=== PATIENT | female | born 1945 | race African-American/Black ===

== ENCOUNTER 2016-06-21 11:17 | Emergency (ER) | payer MEDICARE, MEDICAID, OTHER ==
[~2016-06-21] VITALS: Ht 170.2 cm; Wt 136.0 kg
[~2016-06-21 11:17] MED LIST: ASPI81TA82 PO; BENI40TA30 PO; FISH1000 PO; GLUCTAB PO; METO100T PO; MOBI15TA PO; OMEP20CA5 PO; SPIR50TA21 PO; SULF1TAB47 PO
[2016-06-21 11:19] VITALS: BP 219/105; PULSE 76; RESP 24; TEMP 98.5; O2SAT 96
--- NOTE | 2016-06-21 11:42 | PD ---
Physical Exam Date Seen by Provider: Jun 21, 2016 Narrative Pt was sent by Dr. Dukes for evaluation of redness to right hand and forearm. Pt reports pain in right hand 8/10. Pt states doctor told her she had a slight fever. Pt with hx of hypertension, states she took her medication this morning. She denies any other complaints. Redness extends to mid forearm, pain with passive extension of fingers on right hand. Awaiting bed placement. Daughter with patient. Data Data Last Documented VS Vital Signs Date Time Temp Pulse Resp B/P Pulse Ox O2 Delivery O2 Flow Rate FiO2 06/21/16 11:19 98.5 76 24 219/[address] [facility] Supervised Visit with CRISTINE: Melody Landis Jun 21, 2016 11:42
--- NOTE | 2016-06-21 13:00 | PD ---
HPI Chief Complaint: Skin Problem Time Seen by Provider: 13:00 Travel History International Travel<30 days: No Contact w/Intl Traveler<30days: No Traveled to known affect area: No History of Present Illness HPI 71-year-old female with history of diabetes and high blood pressure presents to the emergency department for evaluation of redness and swelling of her distal right upper extremity. Patient states she notices Sunday. This distal forearm and hand were red and swollen when she woke up. She does not recall any injury. She states over the weekend has lessened but persists. She reports significant pain with extension of the third and fourth digits of the right hand and it is difficult to make a fist secondary to the pain. She rates the pain at rest a 6 out of 10. With movement it exacerbates a 10 out of 10. Erythema is primarily on the forearm. She went and saw Dr. Dukes today who advised after his exam that she come to the emergency department for further evaluation of possible DVT. Patient denies any fever or chills. She has no other symptoms to report. PFSH Past Medical History Cardiovascular Problems: Yes (HTN) Diabetes: Yes (bydureon injection once a week.) Hypertension: Yes Respiratory: No (non smoker) Tubal Ligation: Yes Social History Alcohol Use: No Tobacco Use: No Substance Use: No Allergies-Medications (Allergen,Severity, Reaction): Coded Allergies: No Known Allergies (Unverified , 06/21/16) Reported Meds & Prescriptions Reported Meds & Active Scripts Active Keflex (Cephalexin) 500 Mg Cap 500 Mg PO Q6H 5 Days Reported Bydureon Inj (Exenatide) 2 Mg Vial 2 Mg SQ Q7D Ditropan (Oxybutynin Chloride) 5 Mg Tab 5 Mg PO Q12HR Metoprolol Tartrate 100 Mg Tab 100 Mg PO BID Gabapentin 100 Mg Cap 100 Mg PO HS Norvasc (Amlodipine Besylate) 5 Mg Tab 5 Mg PO DAILY Aspirin 81 Mg Tabdr 81 Mg PO DAILY Mobic (Meloxicam) 15 Mg Tab 15 Mg PO DAILY Review of Systems Except as stated in HPI: all other systems reviewed are Neg Physical Exam Narrative GENERAL: Well-nourished female patient, in no acute distress SKIN: Focused skin assessment warm/dry. HEAD: Atraumatic. Normocephalic. EYES: Pupils equal and round. No scleral icterus. No injection or drainage. ENT: No nasal bleeding or discharge. Mucous membranes pink and moist. NECK: Trachea midline. No JVD. CARDIOVASCULAR: Regular rate and rhythm. No murmur appreciated. RESPIRATORY: No accessory muscle use. Clear to auscultation. Breath sounds equal bilaterally. GASTROINTESTINAL: Abdomen soft, non-tender, nondistended. Hepatic and splenic margins not palpable. MUSCULOSKELETAL: No obvious deformities. No clubbing. No cyanosis. There is mild edema of the right forearm extending to the distal hand. It is nonpitting. There is an area of erythema extending on the anterior forearm from the wrist proximally approximately 20 cm by 10 cm there is pain with passive extension of the third and fourth digits elicited in the forearm. The patient slowly makes a fist of the right hand but states this is painful. Distal pulses are palpable. Cap refill is within normal limits. NEUROLOGICAL: Awake and alert. No obvious cranial nerve deficits. Motor grossly within normal limits. Normal speech. PSYCHIATRIC: Appropriate mood and affect; insight and judgment normal. Data Data Last Documented VS Vital Signs Date Time Temp Pulse Resp B/P Pulse Ox O2 Delivery O2 Flow Rate FiO2 06/21/16 14:41 98.0 76 17 150/84 99 06/21/16 11:19 Room Air Orders Iv Access Insert/Monitor (06/21/16 12:59) Complete Blood Count With Diff (06/21/16 12:59) Basic Metabolic Panel (Bmp) (06/21/16 12:59) Coag Profile (06/21/16 12:59) Us Arm Venous Doppler (06/21/16 ) Ketorolac Inj (Toradol Inj) (06/21/16 14:30) Labs Laboratory Tests Test 06/21/16 13:00 White Blood Count 11.2 TH/MM3 Red Blood Count 4.19 MIL/MM3 Hemoglobin 11.2 GM/DL Hematocrit 34.9 % Mean Corpuscular Volume 83.2 FL Mean Corpuscular Hemoglobin 26.8 PG Mean Corpuscular Hemoglobin 32.2 % Concent Red Cell Distribution Width 13.9 % Platelet Count 313 TH/MM3 Mean Platelet Volume 7.2 FL Neutrophils (%) (Auto) 56.6 % Lymphocytes (%) (Auto) 31.9 % Monocytes (%) (Auto) 7.8 % Eosinophils (%) (Auto) 2.7 % Basophils (%) (Auto) 1.0 % Neutrophils # (Auto) 6.3 TH/MM3 Lymphocytes # (Auto) 3.6 TH/MM3 Monocytes # (Auto) 0.9 TH/MM3 Eosinophils # (Auto) 0.3 TH/MM3 Basophils # (Auto) 0.1 TH/MM3 CBC Comment DIFF FINAL Differential Comment Prothrombin Time 10.7 SEC Prothromb Time International 1.0 RATIO Ratio Activated Partial 27.4 SEC Thromboplast Time Sodium Level 140 MEQ/L Potassium Level 4.7 MEQ/L Chloride Level 106 MEQ/L Carbon Dioxide Level 27.6 MEQ/L Anion Gap 6 MEQ/L Blood Urea Nitrogen 20 MG/DL Creatinine 0.98 MG/DL Estimat Glomerular Filtration 68 ML/MIN Rate Random Glucose 85 MG/DL Calcium Level 9.1 MG/DL MDM Medical Decision Making Medical Screen Exam Complete: Yes Emergency Medical Condition: Yes Medical Record Reviewed: Yes Differential Diagnosis Cellulitis versus DVT versus tenosynovitis, however there is no obvious injury that I can see versus tendinitis Narrative Course 71-year-old female presents to emergency department for evaluation of right upper extremity swelling with associated erythema. . I discussed the patient with Dr. Dukes he states that if the patient needs to be admitted due to positive DVT to admit to medicine however otherwise if the patient goes home she can follow-up with her primary care provider or with him in office. Evaluation for DVT on ultrasound is negative. There is no significant leukocytosis identified in CBC. BMP is without acute concern. I discussed the patient with my attending physician who does recommend treating this as a possible cellulitis. Patient will be started on Keflex. She is encouraged to ice and elevate and follow-up with her primary care provider and return immediately with any acute worsening of symptoms. Diagnosis Primary Impression: Right arm cellulitis Referrals: Keila Dukes MD Primary Care Physician Patient Instructions: Cellulitis (ED), General Instructions Additional Instructions: Ice and elevate to reduce pain and swelling Follow-up with your primary care provider Seeking hand specialty evaluation of symptoms persist Tylenol and/or ibuprofen as directed on package as needed for pain Return immediately to the emergency department with any acute or worsening of symptoms Med/Other Pt SpecificInfo: Prescription(s) given Scripts Cephalexin (Keflex)500 Mg [id number] Mg PO Q6H 5 Days Ref 0 Prov:Tracee Cohen 06/21/16 Disposition: 01 DISCHARGE HOME Condition: Stable Tracee Cohen Jun 21, 2016 13:00
[2016-06-21] MEDS ORDERED: ASPI1TAB69 PO (13:02)
[2016-06-21] MEDS ORDERED: AMLO5 PO (13:19)
[2016-06-21] MEDS ORDERED: OXYB5TAB10 PO (13:19)
[2016-06-21] MEDS ORDERED: EXENINJ SQ (13:19)
[2016-06-21] MEDS ORDERED: GABA100C4 PO (13:19)
[2016-06-21] MEDS ORDERED: METO100T PO (13:19)
[2016-06-21 13:21] LABS: AUTOMATED NEUTROPHIL # 6.3 TH/MM3 (1.8-7.7); BASOPHIL # 0.1 TH/MM3 (0-0.2); EOSINOPHIL # 0.3 TH/MM3 (0-0.4); EOSINOPHIL % 2.7 % (0.0-4.0); HEMATOCRIT 34.9 % (35.0-46.0); HEMO FLAGS DIFF FINAL; LYMPH % 31.9 % (9.0-44.0); LYMPHOCYTE # 3.6 TH/MM3 (1.0-4.8); MEAN CELL VOLUME 83.2 FL (80.0-100.0); MEAN CORPUSCULAR HEMOGLOBIN 26.8 PG (27.0-34.0); MEAN CORPUSCULAR HGB CONC 32.2 % (32.0-36.0); MONO % 7.8 % (0.0-8.0); NEUT % 56.6 % (16.0-70.0); PLATELET COUNT 313 TH/MM3 (150-450); RED BLOOD COUNT 4.19 MIL/MM3 (4.00-5.30); RED CELL DISTRIBUTION WIDTH 13.9 % (11.6-17.2); WHITE BLOOD COUNT 11.2 TH/MM3 (4.0-11.0)
[2016-06-21 13:32] LABS: PROTHROMBIN TIME - PATIENT 10.7 SEC (9.8-11.6)
[2016-06-21 13:33] LABS: APTT (PATIENT) 27.4 SEC (24.3-30.1)
[2016-06-21 13:45] LABS: BICARBONATE 27.6 MEQ/L (21.0-32.0); POTASSIUM 4.7 MEQ/L (3.5-5.1)
--- NOTE | 2016-06-21 14:20 | RADRPT ---
EXAM DATE/TIME: 06/21/2016 13:16 [facility] COMPARISON: No previous studies available for comparison. INDICATIONS : Right inner lower arm redness and swelling. MEDICAL HISTORY : Hypertension. Diabetes mellitus type 2. SURGICAL HISTORY : Tubal ligation. Total knee replacement, left. Total knee replacement, right. ENCOUNTER: Initial ACUITY: 1 day PAIN SCORE: 10/10 LOCATION: Right arm. FINDINGS: There is spontaneous flow documented in the brachial, basilic, cephalic, axillary, and subclavian vei ns. The vessels are compressible and augmentation response is documented. No filling defects are se en. The flow is phasic with respiration. Direction of flow in the jugular vein is caudal. CONCLUSION: Negative for deep venous thrombosis right upper extremity. Greg Rivear MD on June 21, 2016 at 14:15 Board Certified Radiologist. This report was verified electronically.
[2016-06-21] MEDS ORDERED: KETOROLAC TROMETHAMINE 30 MG/ML (IVP) VIAL IV PUSH ONE (14:30)
[2016-06-21] MEDS ORDERED: CEPH-460 PO (14:31)
[2016-06-21 14:41] VITALS: BP 150/84; TEMP 98
== END 2016-06-21 14:41 | disposition home or self-care (01) ==
LOC: NEPD 11:17
DX: L03.113 Cellulitis of right upper limb (principal); I10 Essential (primary) hypertension; E11.9 Type 2 diabetes mellitus without complications
CPT/HCPCS: 80048; 85025; 85610; 85730; 93971; 96374; 99284; J1885

== ENCOUNTER 2016-12-13 07:51 | Emergency (ER) | payer MEDICARE, MEDICAID ==
[~2016-12-13] VITALS: Ht 170.2 cm; Wt 155.0 kg
[~2016-12-13 07:51] MED LIST changes: +AMLO5 PO; +ASPI1TAB69 PO; -ASPI81TA82 PO; -BENI40TA30 PO; +CEPH-460 PO; +EXENINJ SQ; -FISH1000 PO; +GABA100C4 PO; -GLUCTAB PO; -OMEP20CA5 PO; +OXYB5TAB10 PO; -SPIR50TA21 PO; -SULF1TAB47 PO
[2016-12-13] MEDS ORDERED: IOHEXOL 350 MG/ML 10 ML VIAL (for RAD DIAG) IVCONTRAST ONE (07:52)
[2016-12-13 07:53] VITALS: BP 190/98; PULSE 65; RESP 15; TEMP 98.9; O2SAT 99
[2016-12-13] MEDS ORDERED: SODIUM CHLORIDE 0.9% FLUSH 10 ML FLUSH IV FLUSH PRN (08:30)
--- NOTE | 2016-12-13 08:52 | PD ---
HPI Chief Complaint: Abdominal Pain Time Seen by Provider: 08:49 Travel History International Travel<30 days: No Contact w/Intl Traveler<30days: No Traveled to known affect area: No History of Present Illness HPI 71-year-old female patient with history of hypertension, diabetes, morbid obesity, presents to the ER today because of one day history of right lower quadrant abdominal pains which she currently measures at a 9 out of 10, worsens with movement, nausea. She denies any vomiting, fevers, urinary symptoms, or any other issues. She denies any previous history of this. Modifying Factors: Worse with movements Associated Signs & Symptoms: Right lower quadrant abdominal pain Risk Factors: None PFSH Past Medical History Cardiovascular Problems: Yes (HTN) Diabetes: Yes Diminished Hearing: No Hypertension: Yes Respiratory: No (non smoker) ?: Not Tubal Ligation: Yes Social History Alcohol Use: No Tobacco Use: No Substance Use: No Allergies-Medications (Allergen,Severity, Reaction): Coded Allergies: No Known Allergies (Unverified , 06/21/16) Reported Meds & Prescriptions Reported Meds & Active Scripts Active Reported Triamcinolone Acetonide (Triamcinolone Acetonide (Topic) 100 % Pow 0.025 % TOPICAL BID Multiple Vitamin 1 Tab 1 Tab PO DAILY Aspirin 81 Mg Chew 81 Mg CHEW DAILY Bydureon Inj (Exenatide) 2 Mg Vial 2 Mg SQ Q7D Ditropan (Oxybutynin Chloride) 5 Mg Tab 5 Mg PO Q12HR Metoprolol Tartrate 100 Mg Tab 100 Mg PO BID Gabapentin 100 Mg Cap 100 Mg PO HS Norvasc (Amlodipine Besylate) 5 Mg Tab 5 Mg PO DAILY Review of Systems Except as stated in HPI: all other systems reviewed are Neg Physical Exam Narrative GENERAL: Well-developed morbidly obese elderly -[place] female patient currently in mild distress. Awake and oriented 3. SKIN: Focused skin assessment warm/dry. HEAD: Atraumatic. Normocephalic. EYES: Pupils equal and round. No scleral icterus. No injection or drainage. ENT: No nasal bleeding or discharge. Mucous membranes pink and moist. NECK: Trachea midline. No JVD. CARDIOVASCULAR: Regular rate and rhythm. No murmur appreciated. RESPIRATORY: No accessory muscle use. Clear to auscultation. Breath sounds equal bilaterally. GASTROINTESTINAL: Abdomen soft, obese, tender palpation at the right lower quadrant pannus area without obvious erythema or deformities, nondistended. Hepatic and splenic margins not palpable. Exam is limited due to body habitus. MUSCULOSKELETAL: No obvious deformities. No clubbing. No cyanosis. No edema. NEUROLOGICAL: Awake and alert. No obvious cranial nerve deficits. Motor grossly within normal limits. Normal speech. PSYCHIATRIC: Appropriate mood and affect; insight and judgment normal. Data Data Last Documented VS Vital Signs Date Time Temp Pulse Resp B/P (MAP) Pulse Ox O2 Delivery O2 Flow Rate FiO2 12/13/16 09:46 16 12/13/16 09:17 68 167/77 (107) 96 Room Air 12/13/16 07:53 98.9 Orders Orders Complete Blood Count With Diff (12/13/16 08:16) Comprehensive Metabolic Panel (12/13/16 08:16) Lipase (12/13/16 08:16) Urinalysis - C+S If Indicated (12/13/16 08:16) Iv Access Insert/Monitor (12/13/16 08:16) Ecg Monitoring (12/13/16 08:16) Oximetry (12/13/16 08:16) Sodium Chloride 0.9% Flush (Ns Flush) (12/13/16 08:30) Sodium Chlor 0.9% 1000 Ml Inj (Ns 1000 M (12/13/16 09:00) Hydromorphone Pf Inj (Dilaudid Pf Inj) (12/13/16 09:00) Ondansetron Inj (Zofran Inj) (12/13/16 09:00) Ct Abd/Pel W Iv Contrast(Rout) (12/13/16 09:44) Iohexol 350 Inj (Omnipaque 350 Inj) (12/13/16 07:52) Urine Culture (12/13/16 11:20) Nitrofurantoin Monohyd Macrocr (Macrobid (12/13/16 12:15) Labs Laboratory Tests Test 12/13/16 09:00 12/13/16 11:20 White Blood Count 10.8 TH/MM3 Red Blood Count 4.41 MIL/MM3 Hemoglobin 11.9 GM/DL Hematocrit 36.4 % Mean Corpuscular Volume 82.5 FL Mean Corpuscular Hemoglobin 27.1 PG Mean Corpuscular Hemoglobin Concent 32.8 % Red Cell Distribution Width 14.1 % Platelet Count 359 TH/MM3 Mean Platelet Volume 7.5 FL Neutrophils (%) (Auto) 60.5 % Lymphocytes (%) (Auto) 28.2 % Monocytes (%) (Auto) 7.5 % Eosinophils (%) (Auto) 2.8 % Basophils (%) (Auto) 1.0 % Neutrophils # (Auto) 6.5 TH/MM3 Lymphocytes # (Auto) 3.1 TH/MM3 Monocytes # (Auto) 0.8 TH/MM3 Eosinophils # (Auto) 0.3 TH/MM3 Basophils # (Auto) 0.1 TH/MM3 CBC Comment DIFF FINAL Differential Comment Blood Urea Nitrogen 15 MG/DL Creatinine 0.89 MG/DL Random Glucose 105 MG/DL Total Protein 8.1 GM/DL Albumin 3.4 GM/DL Calcium Level 9.5 MG/DL Alkaline Phosphatase 46 U/L Aspartate Amino Transf (AST/SGOT) 22 U/L Alanine Aminotransferase (ALT/SGPT) 15 U/L Total Bilirubin 0.5 MG/DL Sodium Level 136 MEQ/L Potassium Level 4.5 MEQ/L Chloride Level 100 MEQ/L Carbon Dioxide Level 25.8 MEQ/L Anion Gap 10 MEQ/L Estimat Glomerular Filtration Rate 76 ML/MIN Lipase 96 U/L Urine Color LIGHT-YELLOW Urine Turbidity CLEAR Urine pH 6.0 Urine Specific Pringle 1.012 Urine Protein NEG mg/dL Urine Glucose (UA) NEG mg/dL Urine Ketones NEG mg/dL Urine Occult Blood NEG Urine Nitrite NEG Urine Bilirubin NEG Urine Urobilinogen LESS THAN 2.0 MG/DL Urine Leukocyte Esterase LARGE Urine RBC 3 /hpf Urine WBC 48 /hpf Urine Amorphous Sediment RARE Urine Bacteria OCC /hpf Microscopic Urinalysis Comment CULTURE INDICATED MDM Medical Decision Making Medical Screen Exam Complete: Yes Emergency Medical Condition: Yes Medical Record Reviewed: Yes Interpretation(s) Laboratory Tests Test 12/13/16 09:00 12/13/16 11:20 Estimat Glomerular Filtration Rate 76 ML/MIN (>89) Urine Leukocyte Esterase LARGE (NEG) Urine WBC 48 /hpf (0-5) Urine Bacteria OCC /hpf (NONE) Differential Diagnosis Right lower quadrant abdominal pains: Renal colic versus pyelonephritis versus gastroenteritis versus diverticulitis versus appendicitis Narrative Course UA shows significant UTI. CAT scan did not show any signs of acute intra- abdominal processes. At this point, my plan would be to release the patient was symptomatically relief for discomfort and antibiotics. Return for any worsening in symptoms as needed. The plan has been discussed with the patient and she states understanding. Follow-up with primary care physician. Diagnosis Primary Impression: Abdominal pain Additional Impression: UTI (urinary tract infection) Med/Other Pt SpecificInfo: Prescription(s) given Scripts Tramadol (Tramadol) 50 Mg Tab 50 MG PO Q6H Y for PAIN, #12 TAB 0 Refills Prov: Katerina Bob MD 12/13/16 Nitrofurantoin Monohydrate Macrocrystals (Macrobid) 100 Mg Capsule 100 MG PO BID for Infection for 7 Days, #14 CAP 0 Refills Prov: Katerina Bob MD 12/13/16 Condition: Stable Katerina Bob MD Dec 13, 2016 08:52
[2016-12-13] MEDS ORDERED: ONDANSETRON HCL 4 MG/2 ML VIAL IV PUSH ONE (09:00)
[2016-12-13] MEDS ORDERED: HYDROmorphone HCL PF 1 MG/ML VIAL IV PUSH ONE (09:00)
[2016-12-13] MEDS ORDERED: SODIUM CHLOR 0.9% 1000 ML INJ 1,000 ML IV ONE (09:00)
[2016-12-13] MEDS ORDERED: MULTTAB67 PO (09:09)
[2016-12-13] MEDS ORDERED: ASPI81CH CHEW (09:09)
[2016-12-13] MEDS ORDERED: TRIAPOW TOPICAL (09:09)
[2016-12-13 09:17] VITALS: BP 167/77; PULSE 68; RESP 16; O2SAT 96
[2016-12-13 09:28] LABS: AUTOMATED NEUTROPHIL # 6.5 TH/MM3 (1.8-7.7); BASOPHIL # 0.1 TH/MM3 (0-0.2); EOSINOPHIL # 0.3 TH/MM3 (0-0.4); EOSINOPHIL % 2.8 % (0.0-4.0); HEMATOCRIT 36.4 % (35.0-46.0); HEMO FLAGS DIFF FINAL; LYMPH % 28.2 % (9.0-44.0); LYMPHOCYTE # 3.1 TH/MM3 (1.0-4.8); MEAN CELL VOLUME 82.5 FL (80.0-100.0); MEAN CORPUSCULAR HEMOGLOBIN 27.1 PG (27.0-34.0); MEAN CORPUSCULAR HGB CONC 32.8 % (32.0-36.0); MONO % 7.5 % (0.0-8.0); NEUT % 60.5 % (16.0-70.0); PLATELET COUNT 359 TH/MM3 (150-450); RED BLOOD COUNT 4.41 MIL/MM3 (4.00-5.30); RED CELL DISTRIBUTION WIDTH 14.1 % (11.6-17.2); WHITE BLOOD COUNT 10.8 TH/MM3 (4.0-11.0)
[2016-12-13 09:40] LABS: ALT (GPT) 15 U/L (10-53)
[2016-12-13 09:42] LABS: ALKALINE PHOSPHATASE 46 U/L (45-117); TOTAL BILIRUBIN ADULT 0.5 MG/DL (0.2-1.0)
[2016-12-13 09:43] LABS: ANION GAP 10 MEQ/L (5-15); AST (GOT) 22 U/L (15-37); BICARBONATE 25.8 MEQ/L (21.0-32.0); BLOOD UREA NITROGEN 15 MG/DL (7-18); CHLORIDE 100 MEQ/L (98-107); GLOMERULAR FILTRATION RATE 76 ML/MIN (>89); SODIUM (NA) 136 MEQ/L (136-145)
[2016-12-13 09:50] LABS: POTASSIUM 4.5 MEQ/L (3.5-5.1)
--- NOTE | 2016-12-13 11:46 | RADRPT ---
EXAM DATE/TIME: 12/13/2016 11:23 [facility] COMPARISON: No previous studies available for comparison. INDICATIONS : Right lower abdominal pain IV CONTRAST: 82 cc Omnipaque 350 (iohexol) IV ORAL CONTRAST: No oral contrast ingested. RADIATION DOSE: 26.87 CTDIvol (mGy) MEDICAL HISTORY : Hypertension. SURGICAL HISTORY : None. ENCOUNTER: Initial ACUITY: 1 day PAIN SCALE: 8/10 LOCATION: Right lower quadrant TECHNIQUE: Volumetric scanning of the abdomen and pelvis was performed. Using automated exposure control and ad justment of the mA and/or kV according to patient size, radiation dose was kept as low as reasonably achievable to obtain optimal diagnostic quality images. DICOM format image data is available electro nically for review and comparison. FINDINGS: LOWER LUNGS: The visualized lower lungs are clear. LIVER: Homogeneous density without lesion. There is no dilation of the biliary tree. No calcified gallston es. SPLEEN: Normal size without lesion. PANCREAS: Within normal limits. KIDNEYS: 1.5 cm cyst on the right. 1.3 CM cyst on left. Negative for stones. ADRENAL GLANDS: Within normal limits. VASCULAR: Moderate calcifications are evident. BOWEL/MESENTERY: The stomach, small bowel, and colon demonstrate no acute abnormality. There is no free intraperitone al air or fluid. ABDOMINAL WALL: Within normal limits. RETROPERITONEUM: There is no lymphadenopathy. BLADDER: No wall thickening or mass. REPRODUCTIVE: Within normal limits. INGUINAL: There is no lymphadenopathy or hernia. MUSCULOSKELETAL: Extensive degenerative changes lower lumbar spine. CONCLUSION: Extensive vascular calcifications. I do not see an etiology for the patient's pain. Dick Deutsch MD FACR on December 13, 2016 at 11:42 Board Certified Radiologist. This report was verified electronically.
[2016-12-13 11:58] LABS: BACTERIA, URINE OCC /hpf; BLOOD, URINE NEG (NEG); COMMENT (UR) CULTURE INDICATED; CULTURE IF INDICATED CULTURE INDICATED; GLUCOSE,URINE NEG (NEG); KETONE, URINE NEG (NEG); NITRITE,URINE NEG (NEG); URINE COLOR LIGHT-YELLOW (YELLW/STRAW)
[2016-12-13] MEDS ORDERED: MACR100C2 PO (12:09)
[2016-12-13] MEDS ORDERED: TRAM50TA PO (12:09)
[2016-12-13] MEDS ORDERED: NITROFURANTOIN MONOHYD MACROCR 100 MG CAP PO ONE (12:15)
[2016-12-13 12:20] VITALS: BP 147/67; PULSE 65; RESP 16; O2SAT 96
== END 2016-12-13 13:47 | disposition home or self-care (01) ==
LOC: NEPC 07:51
DX: N39.0 Urinary tract infection, site not specified (principal); B96.20 Unspecified Escherichia coli [E. coli] as the cause of diseases classified elsewhere; I10 Essential (primary) hypertension; E11.9 Type 2 diabetes mellitus without complications; Z79.4 Long term (current) use of insulin
CPT/HCPCS: 74177; 80053; 81001; 83690; 85025; 87077; 87086; 87186; 96361; 96374; 96375; 99285; J1170; J2405; J7030; Q9967